=== PATIENT | female | born 1995 | race African-American/Black ===

== ENCOUNTER 2019-09-09 23:44 | Emergency (ER) | payer OTHER ==
--- NOTE | 2019-09-10 00:49 | ED ---
Complex/Multi-Sys Presentation - HPI Summary HPI Summary: Patient is a 23 y/o F presenting to [facility] with complaints of left chest pressure , palpitations, SOB, left hand tingling. She notes that she consumed a copious amount of alcohol and used cocaine this past weekend. Patient additionally reports low fluid intake. She denies fevers, N/V and dysuria but makes note of one episode of diarrhea. PMHx of anemia is reported. Patient notes that she has not been taking her vitamin D and iron supplements. Patient is on depo. NKDA reported. PSHx is denied. She reports no tobacco usage and no other substance usage. Patient states that she consumed some alcohol tonight. FMHx of alcohol abuse is reported. On triage, pain is rated 6/10. Home medications and allergies are reviewed. 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 - History Of Current Complaint Chief Complaint: EDShortnessOfBreath Time Seen by Provider: 09/10/19 00:26 Hx Obtained From: Patient Onset/Duration: Still Present Timing: Constant Severity Currently: Moderate Location: Pain At: - chest Character: Pressure Associated Signs And Symptoms: Positive: SOB, Chest Pain, Palpitations, Diarrhea , Other - positive - left hand tingling. Negative: Nausea, Vomiting, Dysuria, Fever - Allergies/Home Medications Allergies/Adverse Reactions: Allergies Allergy/AdvReac Type Severity Reaction Status Date / Time No Known Allergies Allergy Verified 09/09/19 23:46 Home Medications: Home Medications Cholecalciferol TAB* [Vitamin D TAB*] 400 unit PO DAILY 09/10/19 [History Confirmed 09/10/19] Ferrous Sulfate TAB* 325 mg PO DAILY 09/10/19 [History Confirmed 09/10/19] PMH/Surg Hx/FS Hx/Imm Hx Endocrine/Hematology History: Reports: Hx Anemia Sensory History: Denies: Hx Legally Blind, Hx Deafness Opthamlomology History: Denies: Hx Legally Blind EENT History: Denies: Hx Deafness Infectious Disease History: No Infectious Disease History: Denies: Traveled Outside the [place] in Last 30 Days - Family History Known Family History: Positive: Other - alcohol abuse - Social History Alcohol Use: Weekly Substance Use Type: Reports: Cocaine Smoking Status (MU): Never Smoked Tobacco Review of Systems - ROS Summary Review of Systems Summary: Home Medications Medication Instructions Recorded Confirmed Type Cholecalciferol TAB* [Vitamin D 400 unit PO DAILY 09/10/19 09/10/19 History TAB*] Ferrous Sulfate TAB* 325 mg PO DAILY 09/10/19 09/10/19 History Negative: Fever Positive: Palpitations, Chest Pain Positive: Shortness Of Breath Positive: Diarrhea. Negative: Vomiting, Nausea Negative: dysuria Neurological: Other - positive - tingling of left hand All Other Systems Reviewed And Are Negative: Yes Physical Exam - Summary Physical Exam Summary: General: Well-developed, thin-appearing female. No acute distress. HEENT: Normocephalic, Atraumatic. Eyes: Conjuctiva normal, PERRL. Ears: TMs within normal limits. Nares: (-) discharge, (-) erythema. Oropharynx: Clear, mucous membranes moist, (-) exudates. Neck: Soft, FROM, (-) lymphadenopathy, (-) thyromegaly, (-) JVD. Cardiovascular: Normal sinus rhythm, (-) murmur. Lungs: Clear to auscultation bilaterally (-) wheezes, (-) rales, (-) rhonchi. Abdomen: Soft, non-tender, non-distended, (-) organomegaly, normal bowel sounds. Back: (-) CVA tenderness Extremities: No edema. Skin: Warm, dry, (-) rash. Neuro: Alert and oriented x3, no focal deficits. Psychiatric: Anxious appearing, otherwise normal. Triage Information Reviewed: Yes Vital Signs On Initial Exam: Initial Vitals Temp Pulse Resp BP Pulse Ox 98.0 F 121 20 118/85 92 09/09/19 23:47 09/09/19 23:47 09/09/19 23:47 09/09/19 23:47 09/09/19 23:47 Vital Signs Reviewed: Yes Procedures - Sedation Patient Received Moderate/Deep Sedation with Procedure: No Diagnostics - Vital Signs Vital Signs Temp Pulse Resp BP Pulse Ox 09/09/19 23:47 98.0 F 121 20 118/85 92 - Laboratory Result Diagrams: 09/10/19 00:46 09/10/19 00:41 Lab Statement: Any lab studies that have been ordered have been reviewed, and results considered in the medical decision making process. - Radiology CXR Radiology Interpretation Completed By: ED Physician Summary of Radiographic Findings: No infiltrate, no pleural effusion, pending official report. - EKG 4754 Cardiac Rate: Tachycardia - rate of 100 BPM EKG Rhythm: Sinus Tachycardia Summary of EKG Findings: EKG showed sinus tachycardia with rate of 100 BPM, no STEMI. This EKG was reviewed and interpreted by ED physician. Re-Evaluation - Re-Evaluation First Eval Re-Evaluation Time: 02:26 Change: Improved Comment: Patient is improved after fluids and zofran. Workup was within normal limits. Patient was discharged to home and will follow up with PCP. Complex Multi-Symp Course/Dx Course Of Treatment: 23 y/o F presents with chest pain and palpitations. Sx have been present since last weekend when she was drinking copious amounts of alcohol and using cocaine. She notes very little fluid intake. Patient was given IV fluids and zofran with notable improvement. Workup was negative. She was discharged to home. Patient was advised to discontinue cocaine, decrease alcohol intake, and increase water intake. PCP follow up was given. - Diagnoses Provider Diagnoses: Chest pain Discharge ED - Sign-Out/Discharge Documenting (check all that apply): Patient Departure - discharge - Discharge Plan Condition: Stable Disposition: HOME Patient Education Materials: Chest Pain (ED) Referrals: [facility] [Outside] - 3 Days Additional Instructions: PLEASE RETURN TO ED FOR ANY NEW OR WORSENING SYMPTOMS. PLEASE FOLLOW UP WITH YOUR PRIMARY CARE PHYSICIAN WITHIN THREE DAYS. - Billing Disposition and Condition Condition: STABLE Disposition: Home - Attestation Statements Document Initiated by Le: Yes Documenting Scribe: MARIO MINOR Provider For Whom Le is Documenting (Include Credential): MAO ACOSTA MD Scribe Attestation: MARIO Agosto, scribed for MAO ACOSTA MD on 09/10/19 at 0536. Scribe Documentation Reviewed: Yes Provider Attestation: The documentation as recorded by the MARIO mendoza accurately reflects the service I personally performed and the decisions made by me, MAO ACOSTA MD Status of Scribe Document: Viewed
[2019-09-10 00:52] LABS: ABS Basophils 0.1 10^3/ul (0-0.2); ABS Eosinophils 0.2 10^3/ul (0-0.6); ABS Lymphocytes 3.4 10^3/ul (1.0-4.8); ABS Monocytes 0.3 10^3/ul (0-0.8); Eosinophil % 2.9 %; Hematocrit 40 % (35-47); Hemoglobin 13.5 g/dL (12.0-16.0); Lymphocyte % 48.3 %; Mean Corpuscular HGB Conc 34 g/dL (31-36); Mean Corpuscular Hemoglobin 27 pg (27-31); Mean Corpuscular Volume 80 fL (80-97); Mean Platelet Volume 7.2 fL (7.4-10.4); Nucleated Red Blood Cells % 0.1; Platelet Count 216 10^3/uL (150-450); Red Blood Count 5.03 10^6 /uL (3.70-4.87); Red Cell Distribution Width 14 % (10-15)
[2019-09-10] MEDS ORDERED: NS 0.9% 1000 ML** 1,000 ML IV ONE (01:05)
[2019-09-10] MEDS ORDERED: Ondansetron INJ* 2 MG/ML VIAL IV ONE (01:05)
[2019-09-10 01:06] LABS: Urine Appearance Clear; Urine Bilirubin Negative (Negative); Urine Blood 1+ (Negative); Urine Color Yellow; Urine Glucose Negative (Negative); Urine Ketones Trace (Negative); Urine Nitrite Negative (Negative); Urine Protein Negative (Negative); Urine Specific Gravity 1.029 (1.010-1.030); Urine Urobilinogen Negative (Negative)
[2019-09-10 01:09] LABS: ALT 9 U/L (7-52); AST 14 U/L (13-39); Albumin 4.3 g/dL (3.2-5.2); Albumin/Globulin Ratio 1.5 (1-3); Alkaline Phosphatase 62 U/L (34-104); Anion Gap 9 mmol/L (2-11); BUN/Creatinine Ratio 23.9 (8-20); Blood Urea Nitrogen 22 mg/dL (6-24); CO2 Carbon Dioxide 21 mmol/L (22-32); Calcium 9.3 mg/dL (8.6-10.3); Chloride 108 mmol/L (101-111); EGFR African American 91.5 (>60); EGFR Non-African American 75.6 (>60); Globulin 2.9 g/dL (2-4); Glucose 94 mg/dL (70-100); Potassium 3.7 mmol/L (3.5-5.0); Sodium 138 mmol/L (135-145); Total Protein 7.2 g/dL (6.4-8.9)
[2019-09-10 01:11] LABS: Urine Bacteria Absent (Absent); Urine Red Blood Cell 1+(3-5/hpf) (Absent); Urine Squamous Epithelial Cell Present (Absent); Urine White Blood Cell Absent (Absent)
[2019-09-10 01:16] LABS: HCG Pregnancy < 0.60 mIU/mL
[2019-09-10 01:20] LABS: Urine Benzodiazepine Screen None Detected (None Detect); Urine Buprenorphine Screen None Detected (None Detect); Urine Hydrocodone Screen None Detected (None Detect); Urine Opiates Screen None Detected (None Detect)
[2019-09-10 01:33] LABS: Alcohol < 10 mg/dL (<10)
[2019-09-10 01:47] LABS: TSH (Thyroid Stimulating Horm) 0.59 mcIU/mL (0.34-5.60)
[2019-09-10 02:45] VITALS: BP 133/75
== END 2019-09-10 02:45 | disposition home or self-care (01) ==
LOC: ED 23:44
DX: R07.9 Chest pain, unspecified (principal); D64.9 Anemia, unspecified; Z79.899 Other long term (current) drug therapy
CPT/HCPCS: 36415; 71045; 80053; 80307; 80320; 81003; 81015; 83605; 83880; 84443; 84484; 84702; 85025; 85379; 85610; 93005; 96361; 96374; 99283; G0480; J2405